=== PATIENT | male | born 1975 | race Two or more races ===

== ENCOUNTER → 2016-05-24 | Outpatient (CLI) | payer OTHER ==
[~2016-05-24] MED LIST: ALBUTEROL17 GM INH; ANTI-DIARRHEAL2 M1 PO; CERTAGEN PO; CIPRO PO; CLEOCIN HCL300 M1 PO; FLEXERIL10 MG PO; LOMOTIL WHITE2.5 M1 PO; LORTAB 5/500 TA1 TA1 PO; MEDROL PO; NAPROSYN500 MG PO; ORUDIS75 M1 DOB; PRIMATENE MIST INH; SKELAXIN PO; ZITHROMAX PO
--- NOTE | ~2016-05-24 | MR112 ---
[facility] A Service of [facility] & [facility] RADIOLOGY TEXT RESULTS PATIENT: KATERINE YATES LOCATION: [facility] : 75 UNIT #: [id number] AGE: [address]: Radames Akbar MD SEX: M ORDER DR: [id number] [facility] [address] [facility]. [place], [place] [address] [id number] MR#: [id number] Acc #: [id number] NAME: KATERINE YATES. : 1975 SEX: M STUDY DATE/TIME: 05/24/2016 14:23 UNIT: [facility] ROOM: STUDY DESCRIPTION: MR Lumbar WWo Contrast Attending Physician: Radames Akbar M.D. Referring Physician: Radames Akbar M.D. Ordering Physician: Radames Akbar M.D. Primary Care Physician: No Primary Care Physician MRI CENTER REPORT This report is preliminary unless electronic signature is present. EXAM MRI of the lumbar spine, with and without contrast, 05/24/2016. COMPARISON MRI of the lumbar spine, without contrast, 12/28/2014. HISTORY Low back pain, bilateral leg pain which is worse on the left than the right. Patient fell off a roof on 11/19/2014. Surgery in May 2015. TECHNIQUE Multisequence, multiplanar imaging of the lumbar spine was obtained with and without contrast. 20 mL of MultiHance was administered intravenously. FINDINGS Vertebral body heights and alignment are preserved. Degenerative disc signal loss is at multiple levels of the discs. Conus terminates at T11-T12. Signal of conus and cauda equina are within normal limits. Postoperative changes are noted at L3-L4 and L4-L5 with significant improvement in the canal stenosis. No postoperative seroma or fluid collections are noted within the paraspinal muscles. Retroperitoneum is unremarkable. L1-L2: Mild disc bulge, which is slightly prominent in the left foraminal to extraforaminal region, with mild inferior left neural foraminal narrowing. Mild bilateral facet changes are noted with borderline-sized to mild canal stenosis. L2-L3: Moderate disc bulge with bilateral foraminal to extraforaminal broad-based protrusions, worse on the left. Mild right and mild to moderate left neural foraminal narrowing are noted with mild bilateral facet changes and bilateral ligamentum flavum thickening with severe canal STS. [facility] A Service of [facility] & [facility] RADIOLOGY TEXT RESULTS PATIENT: KATERINE YATES LOCATION: [facility] : 75 UNIT #: [id number] AGE: [address]: Radames Akbar MD SEX: M ORDER DR: stenosis. Stable. L3-L4: Concentric disc bulge with mild to moderate left, mild right neural foraminal narrowing and widely patent canal. Posterior decompression is seen. L4-L5: Concentric disc bulge with mild to moderate bilateral neural foraminal narrowing is seen, worse on the left. Widely patent significantly improved canal is noted without stenosis. Mild bilateral lateral recess encroachment is seen, particularly in the left with mild bilateral facet changes. L5-S1: Concentric disc bulge with superimposed right to left subarticular broad-based disc protrusion, which is most prominent in the center. Mild to moderate bilateral lateral recess stenosis is seen with moderate to severe canal stenosis and mild bilateral neural foraminal narrowing. There is new edema noted within the paraspinal muscles of the lower back on either side of midline at the level of L5-S1, extending into the sacrum. Only mild bilateral facet changes are seen, relatively stable. IMPRESSION 1. Postoperative changes are seen at L3-L4 and L4-L5 with significant improvement in the previously noted canal stenosis. Bilateral neural foraminal narrowing are still seen. 2. Degenerative changes are noted in the nonoperative levels, stable since previous study. Of the levels, findings are worse at L2-L3 and L5-S1, as described above. 3. There is new edema noted within the paraspinal muscles of the lower back on either side of midline at the level of L5-S1, extending into the sacrum. Only mild bilateral L5-S1 facet changes are seen, relatively stable. Dictated by... Slick Brooks M.D. THIS IS AN ELECTRONICALLY VERIFIED REPORT Slick Brooks M.D. at 05/27/2016 11:21 AM CPR/sarah TD: 05/26/2016 14:51 JOB #: [id number] MRI CENTER REPORT Page 1 of 1 COPY
== END | disposition home or self-care (01) ==
LOC: CMRI 13:52
DX: M54.5 Low back pain (principal); M79.604 Pain in right leg; M79.605 Pain in left leg; M48.06 Spinal stenosis, lumbar region; M47.816 Spondylosis without myelopathy or radiculopathy, lumbar region; G95.19 Other vascular myelopathies; Z98.890 Other specified postprocedural states
CPT/HCPCS: 72158; A9577

== ENCOUNTER 2016-09-12 11:58 | Inpatient (IN) | payer OTHER ==
--- NOTE | ~2016-09-12 | DS ---
Unit #: [id number] #: [id number] Patient: KATERINE YATES [id number] [facility]. [place], [place] [address] [id number] I MR#: [id number] NAME: KATERINE YATES. ROOM: 237 Age: 40 Sex: M Admission Date: 09/12/2016 : 1975 Discharge Date: 09/14/2016 Attending Physician: Luz Kearney M.D. Primary Care Physician: No Primary Care Physician DISCHARGE SUMMARY DIAGNOSIS ON ADMISSION 1. Acute kidney injury. 2. Gastroenteritis. DIAGNOSES ON DISCHARGE 1. Viral gastroenteritis, improved. 2. Acute kidney injury, resolved. LABS AND PROCEDURES DONE 1. The patient's creatinine is 1.1, sodium 133, potassium 3.0. 2. WBC is 5.6, hemoglobin 16.3, platelet count 157. 3. Urinalysis did not reveal any WBC. 4. Stool for C. diff. was negative. 5. CT scan of abdomen and pelvis did not reveal any acute abnormality. HOSPITAL COURSE This 40-year-old male was admitted to [facility] with acute kidney injury. Details are as per admission H and P. The patient's acute kidney injury was secondary to nausea, vomiting and diarrhea. The patient responded well to IV fluids. He is tolerating diet well and wants to go home. His creatinine is back to normal. The patient's potassium level was low today and it is repleted. It is secondary to IV fluids. PHYSICAL EXAMINATION GENERAL APPERANCE: Today, the patient is comfortable. He is not in any acute distress on physical examination. VITAL SIGNS: Revealed temperature of 98.4. Pulse is 63 per minute. Respiratory rate is 16 per minute. Blood pressure 132/72. HEENT: Examination revealed no conjunctival congestion. Sclerae are nonicteric. NECK: Supple. Trachea is centered. RESPIRATORY: Examination revealed breath sounds equal bilaterally. There are no wheezes or crackles. HEART: Regular rate and rhythm. S1, S2. ABDOMEN: Soft, nontender. Bowel sounds are present in all four quadrants. NEUROLOGIC: The patient is alert to person, place and time. Power is 5/5 bilaterally. Sensations are grossly intact. SKIN: Warm and dry. RECOMMENDATIONS ON DISCHARGE The patient is stable. Activity is as tolerated. MEDICATIONS Unit #: [id number] #: [id number] Patient: KATERINE YATES Imodium 2 mg p.o. q.6 hours p.r.n. diarrhea. FOLLOWUP The patient is advised to follow up with primary care physician in one week and have a CBC and BMP done. The patient is advised to call primary care physician or go to ER if his condition changes. Dictated by... Brenda Hanson TD: 09/14/2016 15:37 JOB #: [id number] DISCHARGE SUMMARY Page 1 of 1 X Luz Kearney MD X DISCHARGE SUMMARY
--- NOTE | ~2016-09-12 | HP ---
Unit #: [id number] #: [id number] Patient: KATERINE YATES [id number] [address] [place], [place] [address] [id number] I MR#: [id number] NAME: KATERINE YATES. ROOM: 237 Age: 40 Sex: M Admission Date: 09/12/2016 : 1975 Attending Physician: Dimas Campbell M.D. Primary Care Physician: No Primary Care Physician HISTORY AND PHYSICAL CHIEF COMPLAINT Nausea and vomiting. HISTORY OF PRESENT ILLNESS The patient is a 40-year-old male who presented to the [facility] emergency department secondary to nausea and vomiting and diarrhea. It started the day prior to presentation. The patient states that his diarrhea has been profuse and that the vomiting started shortly thereafter. He states the medications given in the emergency department helped with nausea but nothing has helped his diarrhea. He states that he feels some better after receiving fluids in the emergency department PAST MEDICAL HISTORY None. PAST SURGICAL HISTORY Appendectomy, hernia surgery x2. SOCIAL HISTORY The patient is primarily German speaking, denies tobacco, alcohol and illicit drug use. FAMILY HISTORY None. ALLERGIES Penicillin which causes a rash. MEDICATIONS None. REVIEW OF SYSTEMS A 10-point review of systems was obtained, negative except as per HPI. PHYSICAL EXAMINATION VITAL SIGNS: Temperature 97.9. Pulse 108. Blood pressure 119/65. GENERAL: A 40-year-old male in no acute distress who appears stated age. HEENT: Pupils are equally round. Extraocular movements intact. Mucous membranes dry. NECK: Supple. No JVD. No lymphadenopathy. CARDIAC: Regular rate and rhythm. No murmurs, gallops or rubs. LUNGS: Clear to auscultation bilaterally. ABDOMEN: Nontender, nondistended. Bowel sounds positive. Unit #: [id number] #: [id number] Patient: KATERINE YATES EXTREMITIES: No cyanosis, clubbing or edema. They are warm and dry. PSYCH: Alert and oriented x3. Affect is appropriate. NEUROLOGICAL: Cranial nerves II through XII intact grossly. The patient moves all extremities equally and with purpose. SKIN: No rashes, bruises or ulcers. MUSCULOSKELETAL: No muscle or joint pain. No muscle or joint swelling. DIAGNOSTIC STUDIES LABORATORY: The patient's chemistries reveal a blood sugar of 149, creatinine of 3, sodium 131, potassium 3.1, bicarb 17, CK 184. IMAGING: CT abdomen shows no acute abnormalities. ASSESSMENT AND PLAN 1. Nausea and vomiting, likely gastroenteritis: patient has been started on IV fluids. 2. Acute kidney injury: The patient's creatinine is 3. This is likely prerenal and the patient has been started on aggressive fluid resuscitation. 3. Metabolic acidosis, likely secondary to a combination of renal injury and diarrhea, with the vomiting: Repeat CBC is pending. 4. Prophylaxis: The patient is low risk given his observation status and no DVT prophylaxis at this time. Dictated by Brenda Connelly/sam TD: 09/12/2016 20:34 JOB #: [id number] HISTORY AND PHYSICAL Page 1 of 1 X Dimas Campbell MD HISTORY AND PHYSICAL
--- NOTE | ~2016-09-12 | CT4 ---
[facility] A Service of [facility] & [facility] RADIOLOGY TEXT RESULTS PATIENT: KATERINE YATES LOCATION: [facility] 237-01 : 75 UNIT #: [id number] AGE: [address]: Dimas Campbell MD SEX: M ORDER DR: [id number] [address] [address] [id number] MR#: [id number] Acc #: [id number] NAME: KATERINE YATES. : 1975 SEX: M STUDY DATE/TIME: 09/12/2016 13:32 UNIT: SED ROOM: STUDY DESCRIPTION: CT Abd and Pelv Wo Cont Attending Physician: Robyn Berrios M.D. Ordering Physician: Robyn Berrios M.D. Primary Care Physician: No Primary Care Physician MEDICAL IMAGING REPORT This report is preliminary unless electronic signature is present. EXAM CT abdomen and pelvis, noncontrast; 09/12/2016. HISTORY 40-year-old male in the ED complaining of 2-day history of lower abdomen pain and vomiting. TECHNIQUE CT examination of the abdomen and pelvis was performed without oral or IV contrast using kidney stone protocol, as requested. The examination is limited without contrast, particularly for evaluation of the GI tract. This CT exam was performed with one or more of the following radiation dose reduction techniques: automatic exposure control, adjustment of mA and/or kV according to patient size, and iterative reconstruction. FINDINGS ABDOMEN: Images are degraded by patient respiratory motion artifact. Small to moderate sized hiatal hernia is noted. The stomach is nondistended. The liver, pancreas and spleen are normal in size and appearance. Nondistended gallbladder. No bile duct dilatation. Both kidneys are negative with no visible nephrolithiasis and no evidence of urinary obstruction. Small bowel and colon are normal in caliber and appearance, as imaged. The appendix is normal. Normal-caliber abdominal aorta. PELVIS FINDINGS: Bladder, prostate and rectum are within normal limits. No mass, adenopathy or fluid collection is seen within the abdomen or pelvis. Limited lung base images show no active disease in the lower chest. IMPRESSION 1. No acute abnormality within the abdomen or pelvis. No visible nephrolithiasis or evidence of urinary obstruction. [facility]. [facility] A Service of [facility] & [facility] RADIOLOGY TEXT RESULTS PATIENT: KATERINE YATES LOCATION: [facility] 237-01 : 75 UNIT #: [id number] AGE: [address]: Dimas Campbell MD SEX: M ORDER DR: 2. to moderate sized hiatal hernia. Nondistended stomach. 3. Normal appendix. 4. Exam limitations as noted above. Dictated by... Hung Mckenzie M.D. THIS IS AN ELECTRONICALLY VERIFIED REPORT Hung Mckenzie M.D. at 09/12/2016 10:02 PM GÓMEZ/kiersten TD: 09/12/2016 16:46 JOB #: [id number] MEDICAL IMAGING REPORT Page 1 of 1
--- NOTE | ~2016-09-12 | DS ---
Unit #: [id number] #: [id number] Patient: KATERINE YATES [id number] [facility]. [address] [place], [place] [address] [id number] I MR#: [id number] NAME: KATERINE YATES. ROOM: 237 Age: 40 Sex: M Admission Date: 09/12/2016 : 1975 Discharge Date: 09/16/2016 Attending Physician: Luz Kearney M.D. Primary Care Physician: No Primary Care Physician DISCHARGE SUMMARY ADDENDUM Patient's discharge was held as he had multiple BMs. Patient was seen by Dr. Brown in consultation, who recommended for patient to follow up with him on outpatient basis. He had started patient on Colestid. Patient is feeling much better and states that his diarrhea has improved. He is advised to followup on outpatient basis with Dr. Brown. PHYSICAL EXAMINATION VITAL SIGNS: Patient's vital signs reveal temperature 98.5, pulse 61 per minute, respiratory rate 18 per minute, blood pressure is 121/69. HEENT: Revealed no conjunctival congestion. Sclerae is nonicteric. NECK: Supple. Trachea central. RESPIRATORY: Revealed breath sounds equal bilaterally. There are no wheezes or crackles. HEART: Regular rate and rhythm. S1, S2. ABDOMEN: Soft, nontender. Bowel sounds are present in all four quadrants. EXTREMITIES: Reveal no pedal edema or cyanosis. NEUROLOGIC: Strength is 5/5 bilaterally. Sensations are grossly intact. Cranial nerves are intact bilaterally. SKIN: Warm and dry. DIAGNOSTIC STUDIES LABORATORY: Today's lab work revealed WBC of 6.3, hemoglobin 14.5, platelet count was 160,000. Patient's creatinine is 0.9, sodium 137, potassium 4.2. Patient's stool for Clostridium difficile is negative. RECOMMENDATIONS ON DISCHARGE 1. Lomotil 2.5 mg one p.o. q.6 hours p.r.n. #20 were dispensed. 2. Skelaxin 800 mg p.o. t.i.d. p.r.n. FOLLOWUP 1. Patient is advised to follow up with primary care physician in one week and have a CBC and BMP done. 2. Patient is advised to follow up with Dr. Brown in two to three weeks. 3. Patient is advised to call primary care physician or go to ER if her condition changes. The plan has been discussed with patient's , who speaks [place], in detail and who had shown complete understanding. Unit #: [id number] #: [id number] Patient: YATESKATERINE Janeth Dictated by... Brenda Hanson TD: 09/16/2016 12:42 JOB #: [id number] CC: Nikolay Brown M.D. DISCHARGE SUMMARY Page 1 of 1 X Luz Kearney MD X DISCHARGE SUMMARY
[~2016-09-12 11:58] MED LIST changes: -ANTI-DIARRHEAL2 M1 PO; -LOMOTIL WHITE2.5 M1 PO; -SKELAXIN PO
[2016-09-12] MEDS ORDERED: SKELAXIN PO (12:01)
[2016-09-12 12:28] LABS: BASOPHIL% 0.1 % (0-2.5); HEMOGLOBIN 18.8 gm/dL (13.0-16.0); LYMPHOCYTE# 0.6 X10e3 (1.0-3.5); LYMPHOCYTE% 6.1 % (17.0-45.0); MEAN CELL VOLUME 82.9 FL (83-96); MEAN CORPUSCULAR HEMOGLOBIN 28.9 PG (28-34); MEAN CORPUSCULAR HGB CONC 34.8 g/dL (30-36); MEAN PLATELET VOLUME 7.4 FL (6.5-11.5); MONOCYTE# 0.8 X10e3 (0-1.0); NEUTROPHIL# 8.5 X10e3 (1.5-7.1); NEUTROPHIL% 85.8 % (40-75); PLATELET COUNT 190 X10e3 (140-420); RED BLOOD COUNT 6.51 X10e (3.90-5.60); RED CELL DISTRIBUTION WIDTH 13.6 % (11.0-15.5); WHITE BLOOD COUNT 9.9 X10e3 (4.0-10.5)
[2016-09-12 12:30] LABS: DIFF IND NO
[2016-09-12 12:50] LABS: ALBUMIN SERUM 5.7 g/dL (3.5-5.0); BILIRUBIN, DIRECT 0.2 mg/dL (0.0-0.2); BILIRUBIN,INDIRECT 1.5 mg/dL (0.0-0.9); BILIRUBIN,TOTAL 1.7 mg/dL (0.2-2.0); CALCIUM SERUM 9.5 mg/dL (8.4-10.2); GLOM FILT RATE Estimated 24.8 mL/min (>60); PROTEIN TOTAL SERUM 9.3 g/dL (6.0-8.3)
[2016-09-12 12:51] LABS: POTASSIUM 3.1 mmol/L (3.5-5.1)
[2016-09-12 14:06] LABS: URINE SOURCE CLEAN CATCH
[2016-09-12 14:09] LABS: URINE APPEARANCE CLEAR; URINE BILIRUBIN NEG (NEG); URINE BLOOD 1+ (NEG); URINE COLOR AMBER; URINE GLUCOSE NEG (NORM); URINE KETONE NEG (NEG); URINE LEUKOCYTE ESTERASE NEG (NEG); URINE NITRATE NEG (NEG); URINE PROTEIN 1+ (NEG); URINE SPECIFIC GRAVITY >=1.030 (1.003-1.035); URINE UROBILINOGEN 0.2 MG/DL (NORM)
[2016-09-12 14:20] LABS: MICRO INDICATED? YES
[2016-09-12 14:23] LABS: CULTURE INDICATED? NO; URINE BACTERIA NEG (NEG); URINE HYALINE CAST 50-100 /[HPF]; URINE RBC 0-2 /[HPF] (0-2); URINE SQUAMOUS EPITHELIAL CELL FEW /[HPF]; URINE WBC 0-2 /[HPF] (0-5)
[2016-09-12 20:29] LABS: BUN/CREATININE RATIO 21.57; CALCIUM SERUM 8.7 mg/dL (8.4-10.2); CREATININE SERUM 1.9 mg/dL (0.6-1.4); GLOM FILT RATE Estimated 43.1 mL/min (>60); POTASSIUM 3.3 mmol/L (3.5-5.1)
[2016-09-13 06:08] LABS: CALCIUM SERUM 8.9 mg/dL (8.4-10.2); CREATININE SERUM 1.4 mg/dL (0.6-1.4); GLOM FILT RATE Estimated 62.4 mL/min (>60); MAGNESIUM 2.6 mg/dL (1.6-3.0); POTASSIUM 3.8 mmol/L (3.5-5.1)
[2016-09-14 05:58] LABS: HEMATOCRIT 47.1 % (38.0-50.0); MEAN CELL VOLUME 82.2 FL (83-96); MEAN CORPUSCULAR HEMOGLOBIN 28.5 PG (28-34); MEAN CORPUSCULAR HGB CONC 34.6 g/dL (30-36); MEAN PLATELET VOLUME 7.5 FL (6.5-11.5); RED BLOOD COUNT 5.72 X10e (3.90-5.60); RED CELL DISTRIBUTION WIDTH 13.3 % (11.0-15.5); WHITE BLOOD COUNT 5.6 X10e3 (4.0-10.5)
[2016-09-14 06:09] LABS: HEMOGLOBIN 16.3 gm/dL (13.0-16.0)
[2016-09-14 06:30] LABS: CALCIUM SERUM 8.9 mg/dL (8.4-10.2); CREATININE SERUM 1.1 mg/dL (0.6-1.4); GLOM FILT RATE Estimated 83.5 mL/min (>60); MAGNESIUM 2.4 mg/dL (1.6-3.0)
[2016-09-14] MEDS ORDERED: ANTI-DIARRHEAL2 M1 PO (12:05)
[2016-09-15 05:54] LABS: HEMATOCRIT 45.7 % (38.0-50.0); HEMOGLOBIN 15.8 gm/dL (13.0-16.0); MEAN CELL VOLUME 81.5 FL (83-96); MEAN CORPUSCULAR HEMOGLOBIN 28.2 PG (28-34); MEAN CORPUSCULAR HGB CONC 34.6 g/dL (30-36); MEAN PLATELET VOLUME 6.9 FL (6.5-11.5); RED BLOOD COUNT 5.6 X10e (3.90-5.60); RED CELL DISTRIBUTION WIDTH 13.1 % (11.0-15.5); WHITE BLOOD COUNT 6.4 X10e3 (4.0-10.5)
[2016-09-15 06:51] LABS: ALBUMIN SERUM 3.7 g/dL (3.5-5.0); BILIRUBIN,TOTAL 1.2 mg/dL (0.2-2.0); CALCIUM SERUM 9.3 mg/dL (8.4-10.2); GLOM FILT RATE Estimated 93.7 mL/min (>60); POTASSIUM 3.5 mmol/L (3.5-5.1); PROTEIN TOTAL SERUM 6.8 g/dL (6.0-8.3)
[2016-09-16 06:57] LABS: HEMATOCRIT 42.3 % (38.0-50.0); HEMOGLOBIN 14.5 gm/dL (13.0-16.0); MEAN CELL VOLUME 82.2 FL (83-96); MEAN CORPUSCULAR HEMOGLOBIN 28.1 PG (28-34); MEAN CORPUSCULAR HGB CONC 34.2 g/dL (30-36); MEAN PLATELET VOLUME 6.7 FL (6.5-11.5); RED BLOOD COUNT 5.15 X10e (3.90-5.60); WHITE BLOOD COUNT 6.3 X10e3 (4.0-10.5)
[2016-09-16 07:26] LABS: ALBUMIN SERUM 3.4 g/dL (3.5-5.0); BILIRUBIN,TOTAL 0.9 mg/dL (0.2-2.0); BUN/CREATININE RATIO 13.33; CALCIUM SERUM 8.8 mg/dL (8.4-10.2); CREATININE SERUM 0.9 mg/dL (0.6-1.4); GLOM FILT RATE Estimated 106.5 mL/min (>60); POTASSIUM 4.2 mmol/L (3.5-5.1); PROTEIN TOTAL SERUM 6.1 g/dL (6.0-8.3)
[2016-09-16] MEDS ORDERED: LOMOTIL WHITE2.5 M1 PO (13:11)
== END 2016-09-16 15:55 | disposition home or self-care (01) | DRG 683 ==
LOC: SED 11:58 → C2A 14:45 → CEDOF 14:45 → C2A 17:52 → CEDOF 17:52 → SED 17:52 → CEDOF 17:58 → C2A 17:58
PROVIDERS: Internal Medicine; Student in an Organized Health Care Education/Training Program
DX: N17.9 Acute kidney failure, unspecified (principal); E87.2 Acidosis; A08.4 Viral intestinal infection, unspecified; E86.0 Dehydration; E87.6 Hypokalemia; Z88.0 Allergy status to penicillin
CPT/HCPCS: 36415; 74176; 80048; 80053; 80076; 81003; 82150; 82550; 83690; 83735; 84132; 85025; 85027; 87045; 87427; 87493; 87899; 96361; 96374; 96375; 99285; C9113; J2405; J3475